=== PATIENT | male | born 1960 | race Hispanic/Latino ===

== ENCOUNTER 2017-06-18 12:28 | Emergency (ER) | payer BC ==
[2017-06-18 12:31] VITALS: PULSE 70
[2017-06-18 12:52] VITALS: BMI 25.8
[2017-06-18 12:55] VITALS: TEMP 97.8
[2017-06-18] MEDS ORDERED: Morphine 2 mg/ml ISec IVP STA (12:55)
[2017-06-18] MEDS ORDERED: Morphine 2 mg/ml ISec ONE (12:59)
[2017-06-18] MEDS ORDERED: Sodium Chloride 0.9% 1,000 ML IV SCH (13:00)
[2017-06-18 13:12] LABS: BASO # 0.04 K/mm3 (0.0-2.0); BASO % 0.5 % (0.0-3.0); EOS # 0.2 (0.0-0.7); EOS % 2.1 % (1.5-5.0); GRAN # 5.68 (1.4-6.5); GRAN % 69.1 % (50.0-68.0); LYMPH # 1.6 (1.2-3.4); MEAN CELL VOLUME 84.9 fl (80.0-105.0); MEAN CORPUSCULAR HEMOGLOBIN 28.7 pg (25.0-35.0); MEAN CORPUSCULAR HGB CONC 33.8 g/dl (31.0-37.0); MEAN PLATELET VOLUME 10.5 fl (7.0-11.0); MONO # 0.7 (0.1-0.6); MONO % 8.3 % (1.0-6.0); RED CELL DISTRIBUTION WIDTH 14.5 % (11.5-14.5); WHITE BLOOD COUNT 8.2 10^3/ul (4.5-11.0)
[2017-06-18 13:17] LABS: INR 1.14 (0.93-1.08)
[2017-06-18 13:19] LABS: ALB/GLOB RATIO 1.6 (1.1-1.8); ALKALINE PHOSPHATASE 85 U/L (38-126); ALT/SGPT 21 U/L (7-56); AST/SGOT 24 U/L (17-59); BILIRUBIN,TOTAL 0.8 mg/dL (0.2-1.3); BLOOD UREA NITROGEN 15 mg/dL (7-21); CARBON DIOXIDE 26 mmol/L (21-33); CHLORIDE 102 mmol/L (98-107); GFR AFRICAN-AMERICAN > 60; GLUCOSE,RANDOM 112 mg/dL (70-110); PARTIAL THROMBOPLASTIN TIME 28.3 Seconds (25.1-36.5); POTASSIUM 4.6 mmol/L (3.6-5.0); SODIUM 141 mmol/L (132-148)
--- NOTE | 2017-06-18 13:30 | ED PDOC ---
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 Patient cannot identify any trauma that could have started the back pain but he has been working on kitchen for the past couple days. Pain is aggravated by any movement, he describes it as sharp and debilitating. He rates it a 6/10 at it's best and a 10/10 at it's worse (when it spasms). He has been taken 3-4 Naproxen a day but it has not helped his pain. Patient denies any radiation on the back of his leg but he does complain of a pins and needles sensation on his distal left lower ext. He denies any bowel/urinary incontinence and any saddle anaesthesia. Patient denies any headache, chest pain, SOB, abdominal pain, changes in bowel habits, or urinary symptoms. (Cipriano Alexandre) Past Medical History - Provider Review Nursing Documentation Reviewed: Yes - Infectious Disease Hx of Infectious Diseases: None - Tetanus Immunization Tetanus Immunization: Up to Date - Cardiac Hx Cardiac Disorders: Yes Hx Pacemaker: Yes (Left Chest) Other/Comment: valve replacement in 2012 - Pulmonary Hx Respiratory Disorders: No - Neurological Hx Neurological Disorder: No - HEENT Hx HEENT Disorder: No - Renal Hx Renal Disorder: No - Endocrine/Metabolic Hx Endocrine Disorders: No - Hematological/Oncological Hx Blood Disorders: No - Integumentary Hx Dermatological Disorder: No - Musculoskeletal/Rheumatological Hx Musculoskeletal Disorders: Yes Hx Back Pain: Yes - Gastrointestinal Hx Gastrointestinal Disorders: No - Genitourinary/Gynecological Hx Genitourinary Disorders: No - Psychiatric Hx Psychophysiologic Disorder: No Hx Substance Use: No - Surgical History Hx Valve Replacement: Yes Other/Comment: Spinal surggery in november 2014 - Anesthesia Hx Anesthesia: Yes Hx Anesthesia Reactions: No Hx Malignant Hyperthermia: No <Cipriano Alexandre - Last Filed: 06/18/17 22:10> Family/Social History - Physician Review Nursing Documentation Reviewed: Yes Family/Social History: Other (Multiple family members with aortic aneurysms ) Smoking Status: Heavy Smoker > 10 Cigarettes Daily Hx Alcohol Use: Yes Frequency of alcohol use: Socially Hx Substance Use: No <Cipriano Alexandre - Last Filed: 06/18/17 22:10> Allergies/Home Meds <Pete Prakash - Last Filed: 06/18/17 17:20> <Cipriano Alexandre - Last Filed: 06/18/17 22:10> Allergies/Adverse Reactions: Allergies No Known Allergies Allergy (Verified 12/04/15 11:05) Home Medications: Home Meds Medication Instructions Recorded Confirmed Aspirin [Aspirin] 81 mg PO DAILY 05/01/15 12/04/15 Carvedilol [Coreg] 3.125 mg PO DAILY 05/01/15 12/04/15 DULoxetine [Cymbalta] 20 mg PO DAILY 05/01/15 12/04/15 Digoxin 0.25 mg PO DAILY 05/01/15 12/04/15 Furosemide [Lasix] 20 mg PO DAILY 05/01/15 12/04/15 Plavix 75 mg PO DAILY 05/01/15 12/04/15 Potassium Chloride [Klor-Con M10] 10 meq PO DAILY 05/01/15 12/04/15 Pravastatin Sodium [Pravachol] 20 mg PO HS 05/01/15 12/04/15 Prednisone 5 mg PO DAILY 05/01/15 12/04/15 Ramipril [Ramipril] 5 mg PO DAILY 05/01/15 12/04/15 Ativan 0.25 mg PO Q6 PRN 09/24/15 12/04/15 Spironolactone 25 mg PO DAILY 09/24/15 12/04/15 Review of Systems - Physician Review All systems were reviewed & negative as marked: Yes (As per HPI) - Review of Systems Respiratory: Normal. absent: SOB Cardiovascular: Normal. absent: Chest Pain Gastrointestinal: Normal. absent: Abdominal Pain <Cipriano Alexandre - Last Filed: 06/18/17 22:10> Physical Exam Vital Signs Reviewed: Yes Temperature: Afebrile Blood Pressure: Normal Pulse: Regular Respiratory Rate: Normal Appearance: Positive for: Non-Toxic, Uncomfortable Pain Distress: Severe Mental Status: Positive for: Alert and Oriented X 3 - Systems Exam Head: Present: Atraumatic, Normocephalic Conjunctiva: Present: Normal Ears: Present: Normal Mouth: Present: Moist Mucous Membranes Nose (External): Present: Atraumatic Respiratory/Chest: Present: Clear to Auscultation. No: Wheezes, Rhonchi Cardiovascular: Present: Regular Rate and Rhythm, Murmurs, Normal S1, S2 Abdomen: Present: Normal Bowel Sounds. No: Tenderness, Distention, Peritoneal Signs, Rebound, Guarding Back: Present: CVA Tenderness, Paraspinal Tenderness, Pain with Leg Raise (Back , no radiation down posterior legs b/l. ). No: Midline Tenderness Upper Extremity: Present: Normal Inspection Lower Extremity: Present: Normal Inspection, NORMAL PULSES, Neurovascularly Intact. No: Edema Neurological: Present: GCS=15, Speech Normal, Normal Sensory Function. No: Norm Deep Tendon Reflexes (+2 on right side, + 3 on left side (knee)) Skin: Present: Warm, Dry, Normal Color Psychiatric: Present: Alert, Oriented x 3 <Cipriano Alexandre - Last Filed: 06/18/17 22:10> Vital Signs Temp Pulse Resp BP Pulse Ox 06/18/17 16:32 61 18 107/63 100 06/18/17 12:52 97.8 F 70 19 113/70 99 Medical Decision Making <Pete Prakash - Last Filed: 06/18/17 17:20> Reassessment Condition: Re-examined, Improved - Lab Interpretations I have reviewed the lab results: Yes - RAD Interpretation Motor Winder: ED Physician, Radiologist <Cipriano Alexandre - Last Filed: 06/18/17 22:10> ED Course and Treatment: 06/18/17 15:32 Patient Seen With Resident: In agreement with resident note which contains more details about the patient. Patient was seen and evaluated with resident. Came up with plan and treatment together. A 56 year old male presents to the emergency department with worsening back pain. The patient has been treated with lab work, lumbar spine x- ray, ct ab/pelvis, morphine, and IV fluids. On my exam, the patient was found to have clearly palpable back pain, no rash. No saddle anesthesia. No motor or sensory deficits. No pulsatile masses. Strong distal pulses noted. No abdominal pain on palpation. Pain is WORSE WITH TURNING as well as palpable. He has prior history of lumbar spine injury he reports but reports different character of pain. CT reviewed with patient, limitations of imaging reviewed with patient. He is neurovascularly intact. I have reviewed his Naproxen usage, have advised proper dosage. Pain improved after Toradol, and patient is ambulatory and comfortable on re- evaluation. Patient will be discharged with Ultracet, risks and side effects reviewed. Have advised follow-up with his pmd and back specialist. Patient with no chest pain or shortness of breath. No upper back, no upper abdominal pain. No motor or sensory deficits on re-evaluation. 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 --CBC/CMP --PT/PTT --UA --Lumbar Spine X-ray --CT Abd/Pelvis --Morphine 2 --NS IV fluids 100 mls/hr. --Reassess and Disposition Reassessment: Patient still in severe pain. --Flexeril, Morphine ordered --Reassess and Disposition. Reassessment: CT Abd/Pelvis Impression by Dr. 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, L4-5 (Cipriano Alexandre) - Lab Interpretations Lab Results: 06/18/17 12:40 06/18/17 12:40 Lab Results 06/18/17 15:20: Urine Color Yellow, Urine Appearance Clear, Urine pH 7.0, Ur Specific [place] 1.015, Urine Protein Trace H, Urine Glucose (UA) Negative, Urine Ketones Trace H, Urine Blood Negative, Urine Nitrate Negative, Urine Bilirubin Negative, Urine Urobilinogen 2.0 H, Ur Leukocyte Esterase Negative, Urine RBC Negative, Urine WBC 1 - 3, Ur Epithelial Cells 1 - 3, Urine Bacteria Few 06/18/17 12:40: Sodium 141, Potassium 4.6, Chloride 102, Carbon Dioxide 26, Anion Gap 17, BUN 15, Creatinine 1.0, Est GFR ( Amer) > 60, Est GFR (Non- Af Amer) > 60, Random Glucose 112 H, Calcium 10.0, Total Bilirubin 0.8, AST 24, ALT 21, Alkaline Phosphatase 85, Total Protein 7.0, Albumin 4.3, Globulin 2.7, Albumin/Globulin Ratio 1.6 06/18/17 12:40: PT 12.6 H, INR 1.14 H, APTT 28.3 06/18/17 12:40: WBC 8.2 D, RBC 5.30, Hgb 15.2, Hct 45.0, MCV 84.9, MCH 28.7, MCHC 33.8, RDW 14.5, Plt Count 217, MPV 10.5, Gran % 69.1 H, Lymph % (Auto) 20.0 L, [place] % (Auto) 8.3 H, Eos % (Auto) 2.1, Baso % (Auto) 0.5, Gran # 5.68, Lymph # 1.6, [place] # 0.7 H, Eos # 0.2, Baso # 0.04 - RAD Interpretation Narrative RAD Interpretations (Text): X-ray shows DJD of lumbar spine (Adibe,Raleke) Radiology Orders: 06/18/17 12:54 ABD & PELVIS W/O PO OR IV CONT [CT] Stat 06/18/17 13:39 LS SPINE AP/LAT [RAD] Stat - Medication Orders Current Medication Orders: Discontinued Medications Cyclobenzaprine HCl (Flexeril) 10 mg PO STAT STA Stop: 06/18/17 14:04 Last Admin: 06/18/17 14:24 Dose: 10 mg Sodium Chloride (Sodium Chloride 0.9%) 1,000 mls @ 100 mls/hr IV .Q10H BENITEZ Last Admin: 06/18/17 13:02 Dose: 100 mls/hr eMAR Start Stop Document 06/18/17 13:02 RD (Rec: 06/18/17 13:02 RD [id number]) Intravenous Solution Start Date 06/18/17 Start Time 13:02 Ketorolac Tromethamine (Toradol) 30 mg IVP STAT STA Stop: 06/18/17 15:59 Last Admin: 06/18/17 16:14 Dose: 30 mg MAR Pain Assessment Document 06/18/17 16:14 RD (Rec: 06/18/17 16:14 RD [id number]) Pain Reassessment Is this a pain reassessment? No Sleep Is patient sleeping during reassessment? No Presence of Pain Presence of Pain Yes IVP Administration Document 06/18/17 16:14 RD (Rec: 06/18/17 16:14 RD [id number]) Charges for Administration # of IVP Administrations 1 Morphine Sulfate (Morphine) 2 mg IVP STAT STA Stop: 06/18/17 12:56 Last Admin: 06/18/17 13:02 Dose: 2 mg MAR Pain Assessment Document 06/18/17 13:02 RD (Rec: 06/18/17 13:02 RD [id number]) Pain Reassessment Is this a pain reassessment? No Presence of Pain Presence of Pain Yes IVP Administration Document 06/18/17 13:02 RD (Rec: 06/18/17 13:02 RD [id number]) Charges for Administration # of IVP Administrations 1 Morphine Sulfate (Morphine) 4 mg IVP STAT STA Stop: 06/18/17 14:04 Last Admin: 06/18/17 14:24 Dose: 4 mg MAR Pain Assessment Document 06/18/17 14:24 RD (Rec: 06/18/17 14:24 RD [id number]) Pain Reassessment Is this a pain reassessment? No Sleep Is patient sleeping during reassessment? No Presence of Pain Presence of Pain Yes IVP Administration Document 06/18/17 14:24 RD (Rec: 06/18/17 14:24 RD [id number]) Charges for Administration # of IVP Administrations 1 - Scribe Statement The provider has reviewed the documentation as recorded by the Scribe <Pete Prakash - Last Filed: 06/18/17 17:20> <Cipriano Alexandre - Last Filed: 06/18/17 22:10> - Scribe Statement Lyndsey Wright Provider Scribe Attestation: All medical record entries made by the Scribe were at my direction and personally dictated by me. I have reviewed the chart and agree that the record accurately reflects my personal performance of the history, physical exam, medical decision making, and the department course for this patient. I have also personally directed, reviewed, and agree with the discharge instructions and disposition. (Pete Prakash) Disposition/Present on Arrival <ePte Prakash - Last Filed: 06/18/17 17:20> - Present on Arrival Any Indicators Present on Arrival: Yes History of DVT/PE: No History of Uncontrolled Diabetes: No Urinary Catheter: No History of Decub. Ulcer: No History Surgical Site Infection Following: Orthopedic Procedures - Disposition Have Diagnosis and Disposition been Completed?: Yes Disposition Time: 20:00 <Cipriano Alexandre - Last Filed: 06/18/17 22:10> - Disposition Diagnosis: Back pain Disposition: HOME/ ROUTINE Condition: GOOD Discharge Instructions (ExitCare): Acute Low Back Pain (ED), Lumbar Radiculopathy (ED) Additional Instructions: For any abdominal pain, any numbness or weakness, any incontinence of urine or stool, any rash, any persistent or worsening of pain, get rechecked. Only take pain medication as directed and not excessively. Follow-up with your primary care doctor or back specialist in the next one to two days. Prescriptions: traMADol/Acetaminophen [Ultracet 325 MG-37.5 MG] 1 tab PO BID PRN #10 tab PRN Reason: Pain Referrals: Hieu Rousseau, [Primary Care Provider] - Follow up with primary Forms: [place] Leather (Persian)
[2017-06-18] MEDS ORDERED: Morphine 4 mg/ml ISec IVP STA (14:03)
--- NOTE | 2017-06-18 14:05 | CT ---
PROCEDURE: CT Abdomen and Pelvis without intravenous contrast HISTORY: right flank pain COMPARISON: None. TECHNIQUE: Without contrast.. Contrast Dose: Radiation dose: Total exam DLP = 438 mGy-cm. This CT exam was performed using one or more of the following dose reduction techniques: Automated exposure control, adjustment of the mA and/or kV according to patient size, and/or use of iterative reconstruction technique. FINDINGS: LOWER THORAX: Unremarkable. LIVER: Unremarkable. No gross lesion or ductal dilatation. GALLBLADDER AND BILE DUCTS: Unremarkable. PANCREAS: Unremarkable. No gross lesion or ductal dilatation. SPLEEN: Unremarkable. ADRENALS: Unremarkable. No mass. KIDNEYS AND URETERS: Unremarkable. No hydronephrosis. No solid mass. There is a 3.2 cm simple cyst in the lower pole of the right kidney VASCULATURE: Unremarkable. No aortic aneurysm. BOWEL: Unremarkable. No obstruction. No gross mural thickening. APPENDIX: Unremarkable. Normal appendix. PERITONEUM: Unremarkable. No free fluid. No free air. LYMPH NODES: Unremarkable. No enlarged lymph nodes. BLADDER: Unremarkable. REPRODUCTIVE: Unremarkable. BONES: No acute fracture. OTHER FINDINGS: Disc degeneration at L3-4 and L4-5 IMPRESSION: Unremarkable non contrast enhanced CT of the abdomen and pelvis.
--- NOTE | 2017-06-18 14:54 | RAD ---
PROCEDURE: Radiographs of the Lumbar Spine. HISTORY: Lumbar back pain COMPARISON: No prior. FINDINGS: BONES: There is mild reversal of the normal lordotic curvature. There is also a minimal curvature of the spine to the left. Mild degenerative changes are seen DISC SPACES: Unremarkable. OTHER FINDINGS: None. IMPRESSION: There is mild reversal of the normal lordotic curvature. There is also a minimal curvature of the spine to the left. Mild degenerative changes are seen
[2017-06-18 15:50] LABS: URINE BILIRUBIN NEGATIVE (NEGATIVE); URINE BLOOD NEGATIVE (NEGATIVE); URINE GLUCOSE (UA) NEGATIVE (NEGATIVE); URINE KETONE TRACE mg/dL (NEGATIVE); URINE LEUKOCYTE ESTERASE NEGATIVE Leu/uL (NEGATIVE); URINE PROTEIN TRACE mg/dL (<30 mg/dL)
[2017-06-18 15:52] LABS: URINE APPEARANCE CLEAR (CLEAR); URINE COLOR YELLOW (YELLOW)
[2017-06-18 15:58] LABS: URINE BACTERIA FEW (NEG); URINE RBC NEGATIVE /hpf (0-2)
[2017-06-18 16:33] VITALS: BP 107/63; PULSE 61; RESP 18; O2SAT 100
== END 2017-06-18 17:05 | disposition home or self-care (01) ==
LOC: ED 12:28
DX: M54.5 Low back pain (principal); Z95.0 Presence of cardiac pacemaker; Z95.2 Presence of prosthetic heart valve
CPT/HCPCS: 72100; 74176; 80053; 81001; 85025; 85610; 85730; 96374; 96375; 96376; 99284; J1885; J2270; J7040

== ENCOUNTER 2018-01-23 14:08 | Emergency (ER) | payer SELFPAY ==
[2018-01-23 14:09] VITALS: PULSE 70; BMI 25.8
--- NOTE | 2018-01-23 14:41 | ED PDOC ---
Arrival/HPI - General Chief Complaint: Cardiac Arrest Time Seen by Provider: 01/23/18 14:35 Historian: Patient - History of Present Illness Narrative History of Present Illness (Text): 01/23/18 14:10 57 year old male, whose past medical history includes CAD, who present to the ED via EMS. EMS states patient was unresponsive and given 5 rounds of CPR in route. Patient's notes patient was asleep since 04:00 this morning. Patient 's notes the last time she saw patient alive was an hour before 911 was called. Upon arrival in ED, standard ACLS protocol was followed, patient was intubated and IV was started. Time of recorded at 14:31. Full HPI and ROS unavailable. Time/Duration: Prior to Arrival Symptom Onset: Sudden Symptom Course: Unchanged Activities at Onset: Light Context: Home Past Medical History - Provider Review Nursing Documentation Reviewed: Yes - Infectious Disease Hx of Infectious Diseases: None - Tetanus Immunization Tetanus Immunization: Up to Date - Cardiac Hx Cardiac Disorders: Yes Hx Internal Defibrillator: Yes Hx Pacemaker: Yes (Left Chest) Other/Comment: valve replacement in 2011 - Pulmonary Hx Respiratory Disorders: No - Neurological Hx Neurological Disorder: No - HEENT Hx HEENT Disorder: No - Renal Hx Renal Disorder: No - Endocrine/Metabolic Hx Endocrine Disorders: No - Hematological/Oncological Hx Blood Disorders: No - Integumentary Hx Dermatological Disorder: No - Musculoskeletal/Rheumatological Hx Musculoskeletal Disorders: Yes Hx Back Pain: Yes - Gastrointestinal Hx Gastrointestinal Disorders: No - Genitourinary/Gynecological Hx Genitourinary Disorders: No - Psychiatric Hx Psychophysiologic Disorder: No Hx Substance Use: No - Surgical History Hx Valve Replacement: Yes Other/Comment: Spinal surggery in november 2014 - Anesthesia Hx Anesthesia: Yes Hx Anesthesia Reactions: No Hx Malignant Hyperthermia: No Family/Social History - Physician Review Nursing Documentation Reviewed: Yes Family/Social History: Unknown Family HX Smoking Status: Heavy Smoker > 10 Cigarettes Daily Hx Alcohol Use: Yes Hx Substance Use: No Allergies/Home Meds Allergies/Adverse Reactions: Allergies No Known Allergies Allergy (Verified 12/04/15 11:05) Home Medications: Home Meds Medication Instructions Recorded Confirmed Spironolactone 25 mg PO DAILY 09/24/15 01/23/18 Diazepam [Valium] 10 mg PO DAILY 01/23/18 01/23/18 Escitalopram [Lexapro] 20 mg PO DAILY 01/23/18 01/23/18 Famotidine [Pepcid] 40 mg PO DAILY 01/23/18 01/23/18 Metoclopramide [Reglan] 10 mg PO PRN PRN 01/23/18 01/23/18 Oxycodone HCl/Acetaminophen 0 tab PO 01/23/18 [Endocet 325 mg-10 mg] Sildenafil Citrate [Revatio] 20 mg PO DAILY 01/23/18 01/23/18 Review of Systems - Review of Systems Systems not reviewed;Unavailable: Acuity of Condition Physical Exam Vital Signs Temp Pulse 01/23/18 14:25 94.7 F L 01/23/18 14:10 85 - Systems Exam Pupils: Present: Other (Pupild fixed and dilated) Respiratory/Chest: Present: Other (No air exchange without bagging) Cardiovascular: Present: Other (Monitor showed pacer spikes, no capture). No: Murmurs Abdomen: No: Tenderness, Distention Back: Present: Normal Inspection Upper Extremity: Present: Normal Inspection Lower Extremity: Present: Normal Inspection. No: Edema Skin: Present: Cold. No: Rashes Psychiatric: Present: Oriented x 3 Medical Decision Making ED Course and Treatment: 01/23/18 14:46 Impression: 57 year old male presents to the emergency department unresponsive via EMS. Plan: -- Reassess and disposition Progress Notes: Upon arrival in Emergency department, ACLS protocol was followed. Patient IV started and pt was intubated. Time of called at 14:31. - Scribe Statement The provider has reviewed the documentation as recorded by the Scribstephie Weaver All medical record entries made by the Scribe were at my direction and personally dictated by me. I have reviewed the chart and agree that the record accurately reflects my personal performance of the history, physical exam, medical decision making, and the department course for this patient. I have also personally directed, reviewed, and agree with the discharge instructions and disposition. Disposition/Present on Arrival - Present on Arrival Any Indicators Present on Arrival: No History of DVT/PE: No History of Uncontrolled Diabetes: No Urinary Catheter: No History of Decub. Ulcer: No History Surgical Site Infection Following: Orthopedic Procedures - Disposition Have Diagnosis and Disposition been Completed?: Yes Diagnosis: Cardiopulmonary arrest Disposition: WITH WITHOUT AUTOPSY Disposition Time: 00:00 Patient Plan: Discharge Condition: Referrals: Micheal Beaulieu MD [Primary Care Provider] - Follow up with primary Forms: Adsame (French)
[2018-01-23 15:51] VITALS: TEMP 94.7
== END 2018-01-23 19:00 ==
LOC: ED 14:08
DX: I46.9 Cardiac arrest, cause unspecified (principal); I25.10 Atherosclerotic heart disease of native coronary artery without angina pectoris; Z95.0 Presence of cardiac pacemaker; Z95.2 Presence of prosthetic heart valve; F17.210 Nicotine dependence, cigarettes, uncomplicated